=== PATIENT | male | born 1965 | race African-American/Black ===

== ENCOUNTER → 2016-11-29 | Outpatient (CLI) | payer BC, OTHER | LOC: RAD 09:29 | DX: M25.572 Pain in left ankle and joints of left foot (principal) ==

== ENCOUNTER → 2019-01-23 | Outpatient (CLI) | payer BC, OTHER | LOC: ULTRA 11:11 | DX: M79.605 Pain in left leg (principal); R60.0 Localized edema ==

== ENCOUNTER → 2019-01-28 | Outpatient (CLI) | payer BC, OTHER | LOC: HYPER 01-26 11:34 | DX: I89.0 Lymphedema, not elsewhere classified (principal); L03.115 Cellulitis of right lower limb; L03.116 Cellulitis of left lower limb; I87.2 Venous insufficiency (chronic) (peripheral); I10 Essential (primary) hypertension ==

== ENCOUNTER → 2019-02-16 | Outpatient (CLI) | payer BC, OTHER | LOC: HYPER 02-11 06:51 | DX: I89.0 Lymphedema, not elsewhere classified (principal); I87.2 Venous insufficiency (chronic) (peripheral); L03.116 Cellulitis of left lower limb; I10 Essential (primary) hypertension; L84 Corns and callosities ==

== ENCOUNTER → 2019-11-18 | Outpatient (CLI) | payer BC | LOC: SJCVCIMAG 16:02 | DX: M79.662 Pain in left lower leg (principal); M79.89 Other specified soft tissue disorders ==

== ENCOUNTER → 2019-11-18 | Outpatient (CLI) | payer BC, OTHER | LOC: HYPER 10:51 | DX: I89.0 Lymphedema, not elsewhere classified (principal); I87.2 Venous insufficiency (chronic) (peripheral); L84 Corns and callosities; I10 Essential (primary) hypertension; F17.290 Nicotine dependence, other tobacco product, uncomplicated ==

== ENCOUNTER → 2019-12-28 | Outpatient (CLI) | payer BC | LOC: HYPER 11:14 | DX: I89.0 Lymphedema, not elsewhere classified (principal); I87.2 Venous insufficiency (chronic) (peripheral); R60.1 Generalized edema; L84 Corns and callosities; I10 Essential (primary) hypertension ==

== ENCOUNTER → 2020-01-04 | Outpatient (CLI) | payer BC | LOC: HYPER 10:22 | DX: L97.321 Non-pressure chronic ulcer of left ankle limited to breakdown of skin (principal); I89.0 Lymphedema, not elsewhere classified; I87.2 Venous insufficiency (chronic) (peripheral); R60.1 Generalized edema; L84 Corns and callosities; I10 Essential (primary) hypertension ==

== ENCOUNTER → 2020-01-11 | Outpatient (CLI) | payer BC | LOC: HYPER 11:15 | DX: L97.321 Non-pressure chronic ulcer of left ankle limited to breakdown of skin (principal); I89.0 Lymphedema, not elsewhere classified; I87.2 Venous insufficiency (chronic) (peripheral); L84 Corns and callosities; I10 Essential (primary) hypertension ==

== ENCOUNTER → 2020-05-04 | Outpatient (CLI) | payer BC | LOC: HYPER 08:51 | PROVIDERS: ATTEND Emergency Medicine Emergency Medical Services | DX: I89.0 Lymphedema, not elsewhere classified (principal); L97.211 Non-pressure chronic ulcer of right calf limited to breakdown of skin; L84 Corns and callosities; L85.3 Xerosis cutis; I87.2 Venous insufficiency (chronic) (peripheral); I10 Essential (primary) hypertension; R60.1 Generalized edema; E66.01 Morbid (severe) obesity due to excess calories; Z68.42 Body mass index [BMI] 45.0-49.9, adult ==

== ENCOUNTER → 2020-05-11 | Outpatient (CLI) | payer BC | LOC: HYPER 08:02 | PROVIDERS: ATTEND Emergency Medicine | DX: I89.0 Lymphedema, not elsewhere classified (principal); L97.211 Non-pressure chronic ulcer of right calf limited to breakdown of skin; L85.3 Xerosis cutis; L84 Corns and callosities; R60.1 Generalized edema; I87.2 Venous insufficiency (chronic) (peripheral); I10 Essential (primary) hypertension; E66.01 Morbid (severe) obesity due to excess calories; Z68.42 Body mass index [BMI] 45.0-49.9, adult ==

== ENCOUNTER → 2020-05-25 | Outpatient (CLI) | payer BC | LOC: HYPER 08:12 | PROVIDERS: ATTEND Emergency Medicine | DX: I89.0 Lymphedema, not elsewhere classified (principal); L97.211 Non-pressure chronic ulcer of right calf limited to breakdown of skin; L84 Corns and callosities; L85.3 Xerosis cutis; R60.1 Generalized edema; E66.01 Morbid (severe) obesity due to excess calories; I87.2 Venous insufficiency (chronic) (peripheral); I10 Essential (primary) hypertension; Z68.42 Body mass index [BMI] 45.0-49.9, adult ==

== ENCOUNTER → 2020-09-14 | Outpatient (CLI) | payer BC | LOC: HYPER 09:09 | PROVIDERS: ATTEND Emergency Medicine | DX: L97.211 Non-pressure chronic ulcer of right calf limited to breakdown of skin (principal); L84 Corns and callosities; L85.3 Xerosis cutis; I89.0 Lymphedema, not elsewhere classified; R60.1 Generalized edema; I87.2 Venous insufficiency (chronic) (peripheral); I10 Essential (primary) hypertension; E66.01 Morbid (severe) obesity due to excess calories; Z68.42 Body mass index [BMI] 45.0-49.9, adult ==

== ENCOUNTER → 2020-09-28 | Outpatient (CLI) | payer BC | LOC: HYPER 08:02 | PROVIDERS: ATTEND Emergency Medicine | DX: I89.0 Lymphedema, not elsewhere classified (principal); L97.211 Non-pressure chronic ulcer of right calf limited to breakdown of skin; L85.3 Xerosis cutis; L84 Corns and callosities; R60.1 Generalized edema; E66.01 Morbid (severe) obesity due to excess calories; I87.2 Venous insufficiency (chronic) (peripheral); I10 Essential (primary) hypertension; Z68.42 Body mass index [BMI] 45.0-49.9, adult ==

== ENCOUNTER → 2020-10-12 | Outpatient (CLI) | payer BC | LOC: HYPER 08:04 | PROVIDERS: ATTEND Emergency Medicine | DX: I89.0 Lymphedema, not elsewhere classified (principal); L97.211 Non-pressure chronic ulcer of right calf limited to breakdown of skin; L85.3 Xerosis cutis; L84 Corns and callosities; R60.1 Generalized edema; E66.01 Morbid (severe) obesity due to excess calories; I87.2 Venous insufficiency (chronic) (peripheral); I10 Essential (primary) hypertension; Z68.42 Body mass index [BMI] 45.0-49.9, adult ==

== ENCOUNTER → 2020-10-19 | Outpatient (CLI) | payer BC | LOC: HYPER 08:10 | PROVIDERS: ATTEND Emergency Medicine | DX: I89.0 Lymphedema, not elsewhere classified (principal); L97.211 Non-pressure chronic ulcer of right calf limited to breakdown of skin; L85.3 Xerosis cutis; L84 Corns and callosities; R60.1 Generalized edema; E66.01 Morbid (severe) obesity due to excess calories; I87.2 Venous insufficiency (chronic) (peripheral); I10 Essential (primary) hypertension; Z68.42 Body mass index [BMI] 45.0-49.9, adult ==

== ENCOUNTER → 2020-11-09 | Outpatient (CLI) | payer BC | LOC: HYPER 08:21 | PROVIDERS: ATTEND Emergency Medicine | DX: I89.0 Lymphedema, not elsewhere classified (principal); L97.211 Non-pressure chronic ulcer of right calf limited to breakdown of skin; L84 Corns and callosities; L85.3 Xerosis cutis; R60.1 Generalized edema; E66.01 Morbid (severe) obesity due to excess calories; I87.2 Venous insufficiency (chronic) (peripheral); I10 Essential (primary) hypertension; Z68.42 Body mass index [BMI] 45.0-49.9, adult ==

== ENCOUNTER → 2020-11-16 | Outpatient (CLI) | payer BC | LOC: HYPER 08:13 | PROVIDERS: ATTEND Emergency Medicine | DX: I89.0 Lymphedema, not elsewhere classified (principal); L97.211 Non-pressure chronic ulcer of right calf limited to breakdown of skin; L84 Corns and callosities; L85.3 Xerosis cutis; R60.1 Generalized edema; E66.01 Morbid (severe) obesity due to excess calories; I87.2 Venous insufficiency (chronic) (peripheral); I10 Essential (primary) hypertension; Z68.42 Body mass index [BMI] 45.0-49.9, adult ==

== ENCOUNTER → 2021-03-10 | Outpatient (CLI) | payer BC | LOC: HYPER 07:46 | PROVIDERS: ATTEND Emergency Medicine | DX: I89.0 Lymphedema, not elsewhere classified (principal); L97.211 Non-pressure chronic ulcer of right calf limited to breakdown of skin; L84 Corns and callosities; L85.3 Xerosis cutis; R60.1 Generalized edema; E66.01 Morbid (severe) obesity due to excess calories; I87.2 Venous insufficiency (chronic) (peripheral); I10 Essential (primary) hypertension; Z68.42 Body mass index [BMI] 45.0-49.9, adult ==

== ENCOUNTER → 2021-03-14 | Outpatient (CLI) | payer BC | LOC: HYPER 07:45 | DX: I89.0 Lymphedema, not elsewhere classified (principal); L97.211 Non-pressure chronic ulcer of right calf limited to breakdown of skin; L84 Corns and callosities; L85.3 Xerosis cutis; R60.1 Generalized edema; E66.01 Morbid (severe) obesity due to excess calories; I87.2 Venous insufficiency (chronic) (peripheral); I10 Essential (primary) hypertension; Z68.42 Body mass index [BMI] 45.0-49.9, adult ==

== ENCOUNTER → 2021-03-21 | Outpatient (CLI) | payer BC | LOC: HYPER 09:16 | PROVIDERS: ATTEND Emergency Medicine | DX: I89.0 Lymphedema, not elsewhere classified (principal); L97.211 Non-pressure chronic ulcer of right calf limited to breakdown of skin; L84 Corns and callosities; L85.3 Xerosis cutis; R60.1 Generalized edema; E66.01 Morbid (severe) obesity due to excess calories; I87.2 Venous insufficiency (chronic) (peripheral); I10 Essential (primary) hypertension; Z68.42 Body mass index [BMI] 45.0-49.9, adult ==

== ENCOUNTER → 2021-04-06 | Outpatient (CLI) | payer BC | LOC: HYPER 08:11 | PROVIDERS: ATTEND Emergency Medicine | DX: I89.0 Lymphedema, not elsewhere classified (principal); L97.211 Non-pressure chronic ulcer of right calf limited to breakdown of skin; I87.2 Venous insufficiency (chronic) (peripheral); L85.3 Xerosis cutis; R60.0 Localized edema; L84 Corns and callosities; L03.115 Cellulitis of right lower limb; I10 Essential (primary) hypertension; Z79.899 Other long term (current) drug therapy ==

== ENCOUNTER → 2021-04-20 | Outpatient (CLI) | payer BC | LOC: HYPER 10:14 | PROVIDERS: ATTEND Emergency Medicine Emergency Medical Services | DX: I89.0 Lymphedema, not elsewhere classified (principal); L97.211 Non-pressure chronic ulcer of right calf limited to breakdown of skin; L84 Corns and callosities; L85.3 Xerosis cutis; R60.1 Generalized edema; E66.01 Morbid (severe) obesity due to excess calories; I87.2 Venous insufficiency (chronic) (peripheral); I10 Essential (primary) hypertension; Z68.42 Body mass index [BMI] 45.0-49.9, adult ==

== ENCOUNTER → 2021-05-11 | Outpatient (CLI) | payer BC | LOC: HYPER 08:28 | PROVIDERS: ATTEND Emergency Medicine | DX: I89.0 Lymphedema, not elsewhere classified (principal); L97.211 Non-pressure chronic ulcer of right calf limited to breakdown of skin; L84 Corns and callosities; L85.3 Xerosis cutis; R60.1 Generalized edema; E66.01 Morbid (severe) obesity due to excess calories; I87.2 Venous insufficiency (chronic) (peripheral); I10 Essential (primary) hypertension; Z68.42 Body mass index [BMI] 45.0-49.9, adult ==